=== PATIENT | male | born 1970 | race Caucasian/White ===

== ENCOUNTER 2016-10-26 14:00 | Inpatient (IN) | payer BC ==
--- NOTE | ~2016-10-26 | HP ---
Unit #: [id number] #: [id number] Patient: HERMINIO BABIN [id number] [place] [address] [id number] MR#: [id number] NAME: HERMINIO BABIN ROOM: P214 Age: 45 Sex: M Admission Date: 10/26/2016 : 1970 Attending Physician: Brad Moore M.D. Admitting Physician: Brad Moore M.D. Primary Care Physician: Primary Care Physician No HISTORY AND PHYSICAL HISTORY OF PRESENT ILLNESS Herminio is a 45 year old admitted to [address] [place] [address] because of his abuse of alcohol. PAST MEDICAL HISTORY 1. Long history of alcohol abuse. 2. Obesity. 3. High blood pressure. PAST SURGICAL HISTORY Nothing reported. ALLERGIES No known drug allergies. SOCIAL HISTORY He does not smoke. Drinks at least a pint of liquor on a daily basis. Denies illicit drug use. FAMILY HISTORY Medically noncontributory. REVIEW OF SYSTEMS CONSTITUTIONAL: No fever or chills. HEENT: Denies any sore throat, ear pain or runny nose. CARDIOVASCULAR: Denies chest pain, irregular heart rhythm or palpitations. CHEST: Denies shortness of breath or cough. No hemoptysis. GASTROINTESTINAL: Denies nausea, vomiting, diarrhea or chronic constipation. ENDOCRINE: Denies history of increased thirst or urination. No recent significant weight loss or gain. GENITOURINARY: Denies dysuria, frequency, or hematuria. SKIN: Denies any rashes. HEMATOLOGIC: Denies history of increased bleeding or bruising. MUSCULOSKELETAL: Denies any hot, swollen joints. No generalized muscle pain. NEUROLOGIC: Denies problems with vision or speech. No frequent, severe headaches. No numbness, tingling or weakness in any extremities. Denies loss of bladder or bowel control. CURRENT MEDICATIONS 1. Detox protocol. 2. Zestril 10 mg daily. Unit #: [id number] #: [id number] Patient: HERMINIO BABIN 3. Norvasc 10 mg daily. 4. Prozac 40 mg daily. 5. HCTZ 12.5 mg daily. PHYSICAL EXAMINATION GENERAL: Alert, obese, no apparent distress. VITAL SIGNS: Blood pressure 144/94, heart rate 84, respirations 16, temperature 98.6. WEIGHT: 212. HEIGHT: 5 feet 5 inches. SKIN: Warm and dry without rash or lesion. HEENT: Normocephalic. TMs not viewed. Oral and nasal passages clear. Conjunctivae clear. PERRLA. EOMs intact. NECK: Supple without lymphadenopathy or thyromegaly. HEART: Regular rate and rhythm without murmur. LUNGS: Clear. ABDOMEN: Soft, nontender. : Not done. EXTREMITIES: No evidence of cyanosis, clubbing or edema. Moves all without focal deficit. NEUROLOGICAL: Grossly within normal limits. Cranial Nerves: II: Visual robles are intact. III, IV AND : Extraocular movements are intact. Pupils are equal, round and reactive to light. V: Facial sensation is grossly normal. VII: Facial movements and expression are normal. VIII: Auditory acuity grossly intact. IX, X: Uvula is midline. Phonation is normal. XI: Patient shrugs shoulders and turns head normally. XII: Tongue protrudes in the midline. Sensory and Motor Function: Sensory and motor sensation is grossly normal. Motor: moves all extremities well. Coordination: Gait is normal. Deep Tendon Reflexes: Intact. IMPRESSION Psychiatric admission. RECOMMENDATIONS PSYCHIATRIC: Per psychiatrist. MEDICAL: See no contraindication to participate in facility's activities. MEDICAL PROGNOSIS Good. MEDICAL CONDITION Stable. Dictated by... Clarisa LizamaAMatt-Dony. for Khadar Wilder/andrew TD: 10/27/2016 18:18 JOB #: [id number] Unit #: [id number] #: [id number] Patient: HERMINIO BABIN HISTORY AND PHYSICAL Page 1 of 1 X Cassandra Fox HISTORY AND PHYSICAL
--- NOTE | ~2016-10-26 | PN ---
Unit #: [id number] #: [id number] Patient: ANYA BABIN [id number] [facility] [address] [place] [address] [id number] I MR#: [id number] NAME: ANYA BABIN ROOM: P214 Age: 45 Sex: M Admission Date: 10/26/2016 : 1970 Attending Physician: Brad Moore M.D. Admitting Physician: Brad Moore M.D. Primary Care Physician: Primary Care Physician Lauren COLEMAN NOTES DATE OF SERVICE 10/27/2016 DISCUSSION Mr. Babin is a 45-year-old white male with alcohol dependence who was seen today. Chart was reviewed and case was discussed with the staff. He has been anxious, withdrawn, and rather seclusive to himself and does appear to be in some distress and discomfort. Meanwhile, he has been cooperative with the treatment recommendations and has been taking the medications and tolerating them fairly well. MENTAL STATUS EXAMINATION Middle-aged white male who is casually dressed with fair personal hygiene, appears to be in no acute distress or discomfort. He was awake and alert on interaction with intact orientation. Her mood is anxious with congruent affect. He denies any suicidal or homicidal ideations and also denies any auditory or visual hallucinations. His insight and judgment remain slightly impaired. TREATMENT PLAN 1. We will continue him on his current treatment protocol. We will monitor his response to the medications and make further adjustments as needed. 2. We will continue to follow up. Dictated by... Khadar Tam/risa TD: 10/28/2016 07:22 JOB #: [id number] Unit #: [id number] #: [id number] Patient: ANYA BABIN PROGRESS NOTES Page 1 of 1 X Brad Moore MD PROGRESS NOTE
--- NOTE | ~2016-10-26 | DS ---
Unit #: [id number] #: [id number] Patient: ANYA DANG [id number] [place] [address] [id number] I MR#: [id number] NAME: ANYA DANG ROOM: [facility] Age: 46 Sex: M Admission Date: 10/26/2016 : 1970 Discharge Date: 10/30/2016 Attending Physician: Brad Moore M.D. Primary Care Physician: Primary Care Physician No DISCHARGE SUMMARY IDENTIFYING DATA Mr. Dang is a 45-year-old white male with history of alcohol dependence, who was self-referred to the hospital. DISCHARGE DIAGNOSES Psychiatric: Alcohol dependence, moderate and acute withdrawals; alcohol-induced mood disorder. Medical: Hypertension. Stressors: Mild psychosocial stressors. HISTORY OF PRESENT ILLNESS Please see initial psychiatric evaluation for details. PAST PSYCHIATRIC HISTORY Please see initial psychiatric evaluation for details. PAST MEDICAL HISTORY Please see initial psychiatric evaluation for details. HOSPITAL COURSE The patient was [facility] adult [facility] and was oriented to the hospital environment. Routine p.r.n. medications were initiated, and he was started back on his home medications and detox protocol was initiated as well and he was closely monitored. He was taking the medications regularly and was tolerating them fairly well and was able to show a decent and therapeutic response and was willing to continue treatment on an outpatient basis and as such, it was decided that he will be discharged home and will continue treatment on an outpatient basis. DISCHARGE MEDICATIONS None. DISCHARGE CONDITION Stable. PROGNOSIS Fair. Dictated by... Brad Moore M.D. IAA/modl Unit #: [id number] #: [id number] Patient: ANYA DANG TD: 12/12/2016 23:56 JOB #: [id number] DISCHARGE SUMMARY Page 1 of 1 X Brad Moore MD X DISCHARGE SUMMARY
--- NOTE | ~2016-10-26 | PN ---
Unit #: [id number] #: [id number] Patient: ANYA BABIN [id number] [facility] [address] [place] [address] [id number] I MR#: [id number] NAME: ANYA BABIN ROOM: P214 Age: 45 Sex: M Admission Date: 10/26/2016 : 1970 Attending Physician: Brad Moore M.D. Admitting Physician: Brad Moore M.D. Primary Care Physician: Primary Care Physician Lauren MUKHERJEE PROGRESS NOTES DATE October 29, 2016 DISCUSSION Mr. Babin is a 45-year-old white male, who was seen today and chart was reviewed and the case was discussed with the staff. He has been doing fairly well and appears to be coming out of the detox without any complications and has been taking the medications and tolerating them fairly well with no reported side effects. MENTAL STATUS EXAMINATION Middle-aged white male, who was casually dressed with fair personal hygiene and appears to be in no acute distress or discomfort. He was awake and alert on interaction with intact orientation. His mood is anxious with a congruent affect. He denies any suicidal or homicidal ideations. His insight and judgment remain slightly impaired. TREATMENT PLAN We will continue him on his current treatment protocol, and will monitor his response to the medications, and make further adjustments as needed. Dictated by... Khadar Tam/chris TD: 10/30/2016 11:25 JOB #: [id number] [facility] PROGRESS NOTES Page 1 of 1 X Brad Moore MD X PROGRESS NOTE
--- NOTE | ~2016-10-26 | PN ---
Unit #: [id number] #: [id number] Patient: ANYA BABIN [id number] [facility] [address] [place] [address] [id number] I MR#: [id number] NAME: ANYA BABIN ROOM: P214 Age: 45 Sex: M Admission Date: 10/26/2016 : 1970 Attending Physician: Brad Moore M.D. Admitting Physician: Brad Moore M.D. Primary Care Physician: Primary Care Physician Lauren COLEMAN NOTES DATE OF SERVICE: 10/28/2016 SUBJECTIVE Mr. Babin is a 45-year-old white male who was seen today and chart was reviewed and case was discussed with the staff. He appears to be doing fairly well and has been calm and cooperative with treatment recommendations and has been taking the medications and tolerating them fairly well. MENTAL STATUS EXAMINATION Middle-aged white male who was casually dressed with fair personal hygiene, appears to be in no acute distress or discomfort. He was awake and alert with intact orientation. His mood was anxious with a congruent affect. He denies any suicidal or homicidal ideation. His insight and judgment remain slightly impaired. TREATMENT PLAN We will continue him on his current treatment protocol. We will monitor his response and make further adjustments as needed. Dictated by... Khadar Tam/hugo TD: 10/29/2016 22:13 JOB #: [id number] [facility] PROGRESS NOTES Page 1 of 1 X Brad Moore MD PROGRESS NOTE
--- NOTE | ~2016-10-26 | PA ---
Unit #: [id number] #: [id number] Patient: ANYA DANG [id number] [facility] [address] [place] [address] [id number] I MR#: [id number] NAME: ANYA DANG ROOM: P214 Age: 45 Sex: M Admission Date: 10/26/2016 : 1970 Date of Assessment: Attending Physician: Brad Moore M.D. Admitting Physician: Brad Moore M.D. Primary Care Physician: Primary Care Physician No PSYCHIATRIC ASSESSMENT IDENTIFYING DATA Mr. Dang is a 45-year-old, , white male, who is a resident of [place], [place], and was self-referred to the hospital accompanied by his . CHIEF COMPLAINT "I had 12 shots daily." HISTORY OF PRESENT ILLNESS Mr. Dang is a 45-year-old white male with a history of alcohol dependence, who presented and was referred here due to his alcohol abuse by his [facility] therapist who reported the patient has 12 shots daily and has been experiencing shakes, nausea, headache, diarrhea, not sleeping and he stated "I started drinking as a way to relax after work 4 years ago and it became a problem in the last 2 years. I don't drink before work or on the job and strictly after work and on the weekends." The patient reports that he has been drinking 12 shots of ayana after work and on the weekend, he drinks 18 shots of ayana a day and reports his last use was last night and reports past withdrawal symptoms and "I tried to detox myself at home and had nausea, diarrhea, insomnia, irritability." He does report some depression, anxiety, irritability, but denies any suicidal ideations, intent, or plan and as such, recommendation for medical detox was made and the patient was transferred to us. SUBSTANCE ABUSE HISTORY The patient reports history of cannabis abuse, but alcohol has been his drug of choice and reports that he has been drinking regularly and heavily for the last several years. PAST PSYCHIATRIC HISTORY The patient has had a history of chemical dependency treatment on an outpatient basis, but currently is not active in any treatment program, is not seeing a psychiatrist, though his family physician has him on Prozac to help him with his depression. PAST MEDICAL HISTORY Hypertension. ALLERGIES No known medication allergies. PERSONAL AND SOCIAL HISTORY A 45-year-old white male, who reports that he is and lives at home Unit #: [id number] #: [id number] Patient: ANYA DANG with his son and daughter and has fairly decent social support system. MENTAL STATUS EXAMINATION Middle-aged white male, who was casually dressed with fair personal hygiene, appears to be in no acute distress or discomfort. He was awake and alert on interaction with intact orientation to time, place, and person. His mood was anxious and depressed with a congruent affect. His speech was slow and goal directed. He denies any suicidal or homicidal ideations and also denies any auditory or visual hallucinations. His insight and judgment remain slightly impaired. DIAGNOSTIC IMPRESSION Psychiatric: Alcohol dependence, moderate and acute withdrawals; alcohol-induced mood disorder. Medical: Hypertension. Stressors: Moderate psychosocial stressors. TREATMENT PLAN 1. The patient has presented with a history of substance abuse and mood disorder, and has been decompensating and will need inpatient hospitalization for safety and stabilization and detoxification. We will start him on alcohol detox protocol. We will closely monitor for any worsening withdrawal symptoms. 2. Supportive therapy was provided to the patient. 3. Safe, structured, and nourishing environment will be reported. ESTIMATED LENGTH OF STAY 5 to 7 days. ABILITY TO HELP SELF Limited. WILLINGNESS TO HELP SELF The patient appears to be willing to help self. STRENGTHS 1. Communicative. 2. Cooperative. PROBLEMS 1. Chronic dysphoric symptoms. 2. Chronic chemical dependency. 3. Poor social support system. DISCHARGE CRITERIA This will be contingent upon the patient's ability to go through detox without having any significant withdrawal symptoms as well as his ability to stay safe to himself, particularly after discharge from the hospital. Dictated by... Khadar Tam/hugo Unit #: [id number] #: [id number] Patient: ANYA DANG TD: 10/27/2016 07:48 JOB #: [id number] PSYCHIATRIC ASSESSMENT Page 1 of 1 X Brad Moore MD PSYCHIATRIC ASSESSMENT
[~2016-10-26 14:00] MED LIST: NO MEDICATIONS; NORVASC10 MG PO
[2016-10-27 09:38] LABS: BASOPHIL% 0.6 % (0-2.5); EOSINOPHIL# 0.1 X10e3 (0-0.7); EOSINOPHIL% 1.9 % (0.0-7.0); HEMOGLOBIN 16.4 gm/dL (13.0-16.0); LYMPHOCYTE% 13.8 % (17.0-45.0); MEAN CELL VOLUME 94.9 FL (83-96); MEAN CORPUSCULAR HGB CONC 34.8 g/dL (30-36); MONOCYTE# 0.5 X10e3 (0-1.0); MONOCYTE% 7.4 % (3.0-12.0); NEUTROPHIL# 5.3 X10e3 (1.5-7.1); NEUTROPHIL% 76.3 % (40-75); PLATELET COUNT 197 X10e3 (140-420); RED BLOOD COUNT 4.96 X10e (3.90-5.60); RED CELL DISTRIBUTION WIDTH 12.6 % (11.0-15.5)
[2016-10-27 09:40] LABS: DIFF IND NO
[2016-10-27 12:36] LABS: ALBUMIN SERUM 4.7 g/dL (3.5-5.0); BILIRUBIN,TOTAL 1.5 mg/dL (0.2-2.0); CALCIUM SERUM 9.8 mg/dL (8.4-10.2); GLOM FILT RATE Estimated 91.8 mL/min (>60); POTASSIUM 3.7 mmol/L (3.5-5.1); PROTEIN TOTAL SERUM 7.3 g/dL (6.0-8.3)
[2016-10-28 12:25] LABS: URINE APPEARANCE CLEAR; URINE BILIRUBIN NEG (NEG); URINE BLOOD NEG (NEG); URINE COLOR DK YELLOW; URINE GLUCOSE NEG (NEG); URINE KETONE NEG (NEG); URINE LEUKOCYTE ESTERASE NEG (NEG); URINE NITRATE NEG (NEG); URINE PROTEIN NEG (NEG); URINE UROBILINOGEN 0.2 MG/DL (NEG)
[2016-10-28 12:44] LABS: AMPHETAMINE NEG (NEG); BARBITURATES NEG (NEG); BENZODIAZEPINES POS (NEG); COCAINE NEG (NEG); MARIJUANA NEG (NEG); OPIATES NEG (NEG); TRICYCLIC ANTIDEPRESSANTS NEG (NEG); U METHADONE NEG (NEG)
== END 2016-10-30 13:47 | disposition home or self-care (01) | DRG 897 ==
LOC: P2S 17:31
PROVIDERS: Psychiatry & Neurology Psychiatry
PROC: HZ2ZZZZ Detoxification Services for Substance Abuse Treatment (ICD-10-PCS; principal; 2016-10-26)
DX: F10.239 Alcohol dependence with withdrawal, unspecified (principal); F10.24 Alcohol dependence with alcohol-induced mood disorder; I10 Essential (primary) hypertension; E66.9 Obesity, unspecified
CPT/HCPCS: 80053; 80307; 81003; 85025; 86592